=== PATIENT | male | born 1955 | race Caucasian/White ===

== ENCOUNTER 2016-08-07 13:20 | Emergency (ER) | payer MEDICARE, OTHER | END 2016-08-07 15:15 | disposition left against medical advice (07) | LOC: ER 13:20 | DX: Z53.21 Procedure and treatment not carried out due to patient leaving prior to being seen by health care provider (principal) | CPT/HCPCS: 99211 ==

== ENCOUNTER 2016-08-18 10:10 | Emergency (ER) | payer MEDICARE, OTHER | END 2016-08-18 11:26 | disposition home or self-care (01) | LOC: ER 10:10 | DX: S91.302A Unspecified open wound, left foot, initial encounter (principal); L55.9 Sunburn, unspecified; I10 Essential (primary) hypertension; Z79.899 Other long term (current) drug therapy | CPT/HCPCS: 99070; 99282; 99283 ==